=== PATIENT | female | born 2000 | race Caucasian/White ===

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

== ENCOUNTER 2022-03-17 14:58 | Emergency (ER) | payer BC, MEDICAID ==
[2022-03-17] MEDS ORDERED: Sodium Chloride 0.9% 10 ML Syringe FLUSH PRN (15:36)
[2022-03-17] MEDS ORDERED: Sodium Chloride 0.9% 2.5 ML Syringe FLUSH PRN (15:36)
[2022-03-17] MEDS ORDERED: Cefepime 2 GM in Premix Bag 50 BAG IV ONE (16:05)
[2022-03-17 16:34] LABS: CARBON DIOXIDE,CO2 22.9 mmol/L (21.0-32.0); POTASSIUM,K 3.3 mmol/L (3.5-5.1)
[2022-03-17] MEDS ORDERED: Cefepime 2 GM in Sodium Chloride 0.9% 50 ML IV ONE (17:00)
[2022-03-17] MEDS ORDERED: Diatrizoate Meglumine/Diatrizoate Sodium 37% 120 ML Bottle PO STA ×2 (17:53→18:04)
[2022-03-17] MEDS ORDERED: diphenhydrAMINE 50 MG/ML SDV IVPUSH ONE (18:11)
[2022-03-17 20:04] VITALS: BP 99/60; PULSE 97
== END 2022-03-17 21:26 ==
LOC: MW.ED 14:58
DX: T81.49XA Infection following a procedure, other surgical site, initial encounter (principal); Z88.0 Allergy status to penicillin; Z20.822 Contact with and (suspected) exposure to COVID-19
CPT/HCPCS: 36415; 74018; 74176; 80053; 83605; 85025; 87040; 87635; 96365; 96367; 96375; 99284; J0692; J1200; J3370; J3490; J7050; Q9963; 99285; U0002

== ENCOUNTER 2022-06-29 11:54 | Emergency (ER) | payer BC, MEDICAID ==
[2022-06-29 17:36] LABS: BASOPHILS PERCENT AUTO 0.3 % (0.0-1.5); EOSINOPHILS ABSOLUTE AUTO 0.1 K/uL (0.0-0.7); EOSINOPHILS PERCENT AUTO 1.1 % (0.0-7.0); HEMATOCRIT 43.2 % (36.0-46.0); HEMOGLOBIN 15.2 g/dL (12.0-16.0); LYMPHOCYTES ABSOLUTE AUTO 4.7 K/uL (0.6-2.4); LYMPHOCYTES PERCENT AUTO 51.8 % (16.0-40.0); MEAN CORPUSCULAR HGB CONC 35.2 g/dL (31.0-37.0); MEAN CORPUSCULAR VOLUME 85.4 fL (80.0-98.0); MONOCYTES ABSOLUTE AUTO 0.6 K/uL (0.0-0.8); MONOCYTES PERCENT AUTO 6.2 % (0.0-15.0); NEUTROPHILS ABSOLUTE AUTO 3.6 K/uL (1.4-5.7); NEUTROPHILS PERCENT AUTO 40.6 % (48.0-80.0); NRBC ABSOLUTE 0 K/uL; NRBC PERCENT 0.2 /100WBC; PLATELET COUNT,PLT 282 K/uL (150-400); RED BLOOD CELL COUNT 5.06 M/uL (4.30-5.90); WHITE BLOOD CELL COUNT,WBC 8.98 K/uL (4.0-11.0)
[2022-06-29 17:57] LABS: ALBUMIN 3.7 g/dL (3.4-5.0); BILIRUBIN TOTAL 0.2 mg/dL (0.2-1.0); CALCIUM 9.3 mg/dL (8.5-10.1); CARBON DIOXIDE,CO2 22.9 mmol/L (21.0-32.0); CREATININE 0.8 mg/dL (0.6-1.0); EST CRCL DRUG DOSING (CG) 96.86 mL/min; POTASSIUM,K 3.6 mmol/L (3.5-5.1); PROTEIN TOTAL,TP 7.4 g/dL (6.4-8.2)
[2022-06-29] MEDS ORDERED: Bacitracin Oint 1 GM U/D Packet TOP ONE (18:25)
[2022-06-29 19:14] VITALS: BP 96/60; PULSE 72
== END 2022-06-29 19:10 | disposition home or self-care (01) ==
LOC: MW.ED 11:54
DX: L89.899 Pressure ulcer of other site, unspecified stage (principal); Z88.1 Allergy status to other antibiotic agents; Z88.0 Allergy status to penicillin
CPT/HCPCS: 36415; 80053; 85025; 99283